=== PATIENT | male | born 1960 | race Caucasian/White ===

== ENCOUNTER 2017-11-25 23:11 | Inpatient (IN) ==
[2017-11-25] MEDS ORDERED: LIDOCAINE 1% 20 ML VIAL ONE (23:20)
[2017-11-25] MEDS ORDERED: ONDANSETRON 4 MG/2 ML VIAL IV PRN (23:48)
[2017-11-25] MEDS ORDERED: VANCOMYCIN 1,000 MG VIAL ONE (23:55)
[2017-11-26] MEDS ORDERED: ONDANSETRON 4 MG/2 ML VIAL ONE ×2 (00:32→00:37)
[2017-11-26] MEDS ORDERED: MORPHINE 10 MG/1 ML VIAL ONE (00:32)
[2017-11-26] MEDS: MORPHINE 10 MG/1 ML VIAL IV PRN ×12 (00:35→23:35)
[2017-11-26] MEDS ORDERED: PROPOFOL 200 MG/20 ML VIAL IV ONE (00:36)
[2017-11-26] MEDS ORDERED: SEVOFLURANE 1 UNIT/15 MINUTE INH ONE (00:37)
[2017-11-26] MEDS ORDERED: KETAMINE 500 MG/10 ML VIAL ONE (00:37)
[2017-11-26] MEDS ORDERED: fentaNYL 100 MCG/2 ML VIAL ONE (00:37)
[2017-11-26] MEDS ORDERED: MIDAZOLAM 2 MG/2 ML VIAL ONE (00:37)
[2017-11-26] MEDS ORDERED: KETOROLAC 30 MG/1 ML VIAL ONE (00:38)
[2017-11-26] MEDS ORDERED: NEOSTIGMINE 10 MG/10 ML VIAL ONE (00:38)
[2017-11-26] MEDS ORDERED: GLYCOPYRROLATE 0.4 MG/2 ML VIAL ONE ×2 (00:38)
[2017-11-26] MEDS ORDERED: PHENYLEPHRINE 1 MG/10 ML SYRINGE IV ONE (00:38)
[2017-11-26] MEDS ORDERED: ROCURONIUM 100 MG/10 ML VIAL IV ONE (00:38)
[2017-11-26] MEDS ORDERED: ACETAMINOPHEN 325 MG TABLET PO PRN (02:43)
[2017-11-26] MEDS ORDERED: cloNIDine 0.1 MG TABLET PO PRN (02:47)
[2017-11-26] MEDS: PIPERACILLIN/TAZOBACTAM 3,375 MG in SODIUM CHLORIDE 0.9% 100 ML IV SCH ×3 (03:41→19:51)
[2017-11-26 04:03] LABS: Basophils % 0.6 % (0.0-0.8); Eosinophils # 0.1 10*3/uL (0.0-0.87); Eosinophils % 1.2 % (0.00-10.9); Hematocrit 40.2 VOL% (42.0-52.0); Hemoglobin 13.8 GM/DL (14.0-18.0); Immature Granulocytes % 0.3 %; Immature Granulocytes Absolute 0.02 #; Lymphocytes % 15.6 % (21.2-54.2); Mean Corpuscular HGB Conc 34.3 GM/DL (32-36); Mean Corpuscular Hemoglobin 30 PG (27-34); Mean Corpuscular Volume 86.8 FL (87-102); Monocytes # 0.8 10*3/uL (0.11-0.8); Neutrophils # 4.6 10*3/uL (1.4-7.4); Neutrophils % 70.3 % (38.7-73.9); Platelet Count 208 T/CUMM (130-400); Red Blood Count 4.63 MC/CUMM (3.8-5.5); Red Cell Distribution Width 12.7 % (9.3-17.3); White Blood Count 6.6 T/CUMM (4-12)
[2017-11-26 04:22] LABS: Lactic Acid 0.9 MMOL/L (0.4-2.0)
[2017-11-26 04:29] LABS: Albumin 3.5 G/DL (3.4-5.0); Bilirubin,Total 0.7 MG/DL (0.2-1.0); Calcium 8.4 MG/DL (8.5-10.1); Osmolality,Calculated 271.7 MOS/KG (273-304); Potassium 3.9 MMOL/L (3.5-5.1); Total Protein 7.5 G/DL (6.4-8.3)
[2017-11-26] MEDS: oxyCODONE ER 20 MG TABLET PO PRN ×3 (05:25→16:05)
[2017-11-26] MEDS: traZODone 50 MG TABLET PO SCH ×3 (09:09→20:51)
[2017-11-26] MEDS: PROMETHAZINE 25 MG TABLET PO PRN ×2 (09:09→23:37)
[2017-11-26] MEDS: LISINOPRIL 10 MG TABLET PO SCH ×2 (09:09→20:50)
[2017-11-26] MEDS: PANTOPRAZOLE 40 MG TABLET PO SCH ×2 (09:09→20:51)
[2017-11-26] MEDS: ASPIRIN 325 MG TABLET PO SCH (12:14)
[2017-11-26] MEDS: VANCOMYCIN INJ 1,250 MG in SODIUM CHLORIDE 0.9% 250 ML IV SCH (16:20)
[2017-11-27] MEDS: VANCOMYCIN INJ 1,250 MG in SODIUM CHLORIDE 0.9% 250 ML IV SCH ×2 (00:01→17:00)
[2017-11-27] MEDS: MORPHINE 10 MG/1 ML VIAL IV PRN ×7 (02:17→22:00)
[2017-11-27] MEDS: PIPERACILLIN/TAZOBACTAM 3,375 MG in SODIUM CHLORIDE 0.9% 100 ML IV SCH ×3 (03:25→19:09)
[2017-11-27 04:16] LABS: Basophils # 0.1 10*3/uL (0.0-0.2); Basophils % 0.9 % (0.0-0.8); Eosinophils # 0.2 10*3/uL (0.0-0.87); Eosinophils % 3.1 % (0.00-10.9); Hematocrit 36.4 VOL% (42.0-52.0); Immature Granulocytes % 0.4 %; Immature Granulocytes Absolute 0.02 #; Lymphocytes # 1.1 10*3/uL (1.4-4.0); Lymphocytes % 20.7 % (21.2-54.2); Mean Corpuscular HGB Conc 35.7 GM/DL (32-36); Mean Corpuscular Hemoglobin 30 PG (27-34); Mean Corpuscular Volume 85.2 FL (87-102); Mean Platelet Volume 9.8 FL (9.6-12.0); Monocytes # 0.9 10*3/uL (0.11-0.8); Neutrophils # 3.1 10*3/uL (1.4-7.4); Neutrophils % 57.9 % (38.7-73.9); Platelet Count 226 T/CUMM (130-400); Red Blood Count 4.27 MC/CUMM (3.8-5.5); Red Cell Distribution Width 12.9 % (9.3-17.3); White Blood Count 5.4 T/CUMM (4-12)
[2017-11-27 05:09] LABS: Lymphocytes 29 % (20-55); Platelet Estimate Normal; Segmented Neutrophils 61 % (50-85); Total Cells Counted 100
[2017-11-27 05:31] LABS: Calcium 8.4 MG/DL (8.5-10.1); Osmolality,Calculated 272.7 MOS/KG (273-304); Potassium 3.4 MMOL/L (3.5-5.1)
[2017-11-27] MEDS: ASPIRIN 325 MG TABLET PO SCH (09:32)
[2017-11-27] MEDS: traZODone 50 MG TABLET PO SCH ×3 (09:32→21:59)
[2017-11-27] MEDS: PANTOPRAZOLE 40 MG TABLET PO SCH ×2 (09:32→21:59)
[2017-11-27] MEDS: LISINOPRIL 10 MG TABLET PO SCH ×2 (09:32→21:59)
[2017-11-27] MEDS: PROMETHAZINE 25 MG TABLET PO PRN ×2 (09:40→18:45)
[2017-11-28] MEDS: VANCOMYCIN INJ 1,250 MG in SODIUM CHLORIDE 0.9% 250 ML IV SCH ×2 (02:30→15:56)
[2017-11-28] MEDS: oxyCODONE ER 20 MG TABLET PO PRN (02:51)
[2017-11-28] MEDS: MORPHINE 4 MG/1 ML VIAL IV PRN ×6 (04:37→22:07)
[2017-11-28] MEDS: PROMETHAZINE 25 MG TABLET PO PRN ×3 (04:44→19:05)
[2017-11-28] MEDS: PIPERACILLIN/TAZOBACTAM 3,375 MG in SODIUM CHLORIDE 0.9% 100 ML IV SCH ×3 (05:03→18:44)
[2017-11-28] MEDS: ASPIRIN 325 MG TABLET PO SCH (08:37)
[2017-11-28] MEDS: PANTOPRAZOLE 40 MG TABLET PO SCH ×2 (08:38→22:06)
[2017-11-28] MEDS: LISINOPRIL 10 MG TABLET PO SCH ×2 (08:38→22:06)
[2017-11-28] MEDS: traZODone 50 MG TABLET PO SCH ×3 (08:38→22:06)
[2017-11-29] MEDS: MORPHINE 4 MG/1 ML VIAL IV PRN ×7 (01:30→21:36)
[2017-11-29] MEDS: VANCOMYCIN INJ 1,250 MG in SODIUM CHLORIDE 0.9% 250 ML IV SCH ×2 (01:36→14:06)
[2017-11-29] MEDS: PROMETHAZINE 25 MG TABLET PO PRN ×3 (04:27→21:35)
[2017-11-29] MEDS: PIPERACILLIN/TAZOBACTAM 3,375 MG in SODIUM CHLORIDE 0.9% 100 ML IV SCH ×3 (04:36→18:06)
[2017-11-29 06:26] LABS: Basophils # 0.1 10*3/uL (0.0-0.2); Basophils % 1.4 % (0.0-0.8); Eosinophils # 0.3 10*3/uL (0.0-0.87); Eosinophils % 5.3 % (0.00-10.9); Hematocrit 36.5 VOL% (42.0-52.0); Hemoglobin 12.6 GM/DL (14.0-18.0); Immature Granulocytes % 0.2 %; Immature Granulocytes Absolute 0.01 #; Lymphocytes # 1.9 10*3/uL (1.4-4.0); Lymphocytes % 37.3 % (21.2-54.2); Mean Corpuscular HGB Conc 34.5 GM/DL (32-36); Mean Corpuscular Hemoglobin 29 PG (27-34); Mean Corpuscular Volume 84.5 FL (87-102); Mean Platelet Volume 9.7 FL (9.6-12.0); Monocytes # 0.6 10*3/uL (0.11-0.8); Monocytes % 11.7 % (1.7-12.7); Neutrophils # 2.3 10*3/uL (1.4-7.4); Neutrophils % 44.1 % (38.7-73.9); Platelet Count 273 T/CUMM (130-400); Red Blood Count 4.32 MC/CUMM (3.8-5.5); Red Cell Distribution Width 12.4 % (9.3-17.3); White Blood Count 5.1 T/CUMM (4-12)
[2017-11-29 06:36] LABS: Calcium 8.3 MG/DL (8.5-10.1); Osmolality,Calculated 280.3 MOS/KG (273-304); Potassium 3.2 MMOL/L (3.5-5.1)
[2017-11-29] MEDS: PANTOPRAZOLE 40 MG TABLET PO SCH ×2 (08:29→21:35)
[2017-11-29] MEDS: LISINOPRIL 10 MG TABLET PO SCH ×2 (08:29→21:35)
[2017-11-29] MEDS: ASPIRIN 325 MG TABLET PO SCH (08:29)
[2017-11-29] MEDS: traZODone 50 MG TABLET PO SCH ×3 (08:29→21:35)
[2017-11-30] MEDS: MORPHINE 4 MG/1 ML VIAL IV PRN ×5 (00:55→15:19)
[2017-11-30] MEDS: PIPERACILLIN/TAZOBACTAM 3,375 MG in SODIUM CHLORIDE 0.9% 100 ML IV SCH ×2 (03:57→10:58)
[2017-11-30] MEDS: oxyCODONE ER 20 MG TABLET PO PRN (06:34)
[2017-11-30] MEDS: traZODone 50 MG TABLET PO SCH ×2 (09:41→16:55)
[2017-11-30] MEDS: LISINOPRIL 10 MG TABLET PO SCH (09:41)
[2017-11-30] MEDS: ASPIRIN 325 MG TABLET PO SCH (09:41)
[2017-11-30] MEDS: PANTOPRAZOLE 40 MG TABLET PO SCH (09:41)
[2017-11-30 12:04] VITALS: BP 145/88
== END 2017-11-30 16:25 | disposition home health service (06) | DRG 91 ==
LOC: N.SDS 23:17 → SUATTDRO 11-26 01:06 → N.3E 11-26 01:06
PROVIDERS: ADMIT Internal Medicine; ATTEND Internal Medicine Infectious Disease